=== PATIENT | male | born 1980 | race Caucasian/White ===

== ENCOUNTER 2020-04-07 10:57 | Emergency (ER) | payer OTHER ==
[~2020-04-07] VITALS: Ht 188 cm; Wt 94.0 kg
[2020-04-07 11:02] VITALS: BP 110/74
--- NOTE | 2020-04-07 11:46 | NUR ---
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 PAPO
[2020-04-07] MEDS ORDERED: DEXAMETHASONE 4 MG TABLET PO ONE (12:00)
[2020-04-07] MEDS ORDERED: DEXAMETHASONE 4 MG TABLET ONE (12:10)
== END 2020-04-07 12:22 | disposition home or self-care (01) ==
LOC: ED 12:17
DX: K12.2 Cellulitis and abscess of mouth (principal)
CPT/HCPCS: 99283